=== PATIENT | male | born 1990 | race Hispanic/Latino ===

== ENCOUNTER 2018-07-12 10:22 | Emergency (ER) | payer OTHER ==
[2018-07-12] MEDS ORDERED: CEFAZOLIN SODIUM 1 GM VIAL ONE (11:36)
[2018-07-12] MEDS ORDERED: TETANUS/DIPHTHERIA TOXOID [ADULT] 0.5 ML VIAL IM ONE (11:37)
[2018-07-12] MEDS ORDERED: LIDOCAINE HCL-MPF 2% 5ML VIAL ONE (11:40)
== END 2018-07-12 14:13 | disposition home or self-care (01) ==
LOC: EDH 10:22
DX: S62.635B Displaced fracture of distal phalanx of left ring finger, initial encounter for open fracture (principal); W45.8XXA Other foreign body or object entering through skin, initial encounter; Y93.89 Activity, other specified; Y92.810 Car as the place of occurrence of the external cause; Y99.8 Other external cause status
CPT/HCPCS: 29130; 73140; 90471; 90714; 96372; 99284; J0690; J3490

== ENCOUNTER 2022-03-31 09:36 | Emergency (ER) | payer OTHER ==
[~2022-03-31] VITALS: Ht 160 cm; Wt 81.6 kg
[2022-03-31] MEDS ORDERED: KETOROLAC 30MG VIAL (30MG/ML) IVP ONE (12:00)
[2022-03-31] MEDS ORDERED: CEFAZOLIN SODIUM 1 GM VIAL IVP ONE (12:00)
[2022-03-31] MEDS ORDERED: BUPIVACAINE/PF 0.5% 30ML VIAL ONE (12:31)
[2022-03-31] MEDS ORDERED: SULF1TAB42 PO (14:26)
[2022-03-31] MEDS ORDERED: IBUP-2070 PO (14:26)
[2022-03-31 14:39] VITALS: BP 120/66
== END 2022-03-31 14:56 | disposition home or self-care (01) ==
LOC: EDH 09:36
DX: S40.812A Abrasion of left upper arm, initial encounter (principal); S80.812A Abrasion, left lower leg, initial encounter; S56.498A Other injury of extensor muscle, fascia and tendon of left little finger at forearm level, initial encounter; V29.69XA Unspecified motorcycle rider injured in collision with other motor vehicles in traffic accident, initial encounter; Y93.89 Activity, other specified; Y92.89 Other specified places as the place of occurrence of the external cause; Y99.8 Other external cause status
CPT/HCPCS: 64450; 73130; 96374; 96375; 99285; J0690; J1885; J3490